=== PATIENT | female | born 1995 | race Two or more races ===

== ENCOUNTER 2017-03-26 07:47 | Inpatient (IN) | payer SELFPAY ==
[~2017-03-26] VITALS: Ht 154.9 cm; Wt 98.0 kg
[2017-03-26] MEDS ORDERED: IV RINGERS,LACTATED 1000ML 1,000 ML IV SCH (08:39)
[2017-03-26] MEDS ORDERED: IBUPROFEN 600 MG TABLET. PO PRN (08:45)
[2017-03-26] MEDS ORDERED: OXYTOCIN 30 UNIT/500 ML PREMIX 500 ML IV PRN ×2 (08:45→09:45)
[2017-03-26] MEDS ORDERED: LIDOCAINE 1% PF 30 ML VIAL. INJ PRN (08:45)
[2017-03-26] MEDS ORDERED: 0.9 % SODIUM CHLORIDE 10 ML DISP.SYRIN. IV PRN ×2 (08:45→09:45)
[2017-03-26] MEDS ORDERED: fentaNYL PF VIAL 100 MCG/2 ML VIAL IV PRN ×2 (08:45)
[2017-03-26] MEDS ORDERED: TERBUTALINE 1 MG/ML VIAL. SQ PRN (08:45)
[2017-03-26] MEDS ORDERED: BUTORPHANOL 2 MG/ML VIAL. IV PRN ×2 (08:45)
[2017-03-26 09:08] LABS: BASO # 0.1 x10^3/uL (0.0-0.2); BASO % 1 % (0-3); EOS % 2 % (0-3); HEMATOCRIT 36.1 % (36.0-47.0); HEMOGLOBIN 12.1 g/dL (12.0-15.5); LYMPH # 2.8 x10^3/uL (1.0-4.8); LYMPH % 24 % (24-48); MEAN CORPUSCULAR HEMOGLOBIN 25 pg (25-35); MEAN CORPUSCULAR HGB CONC 33 g/dL (31-37); MEAN CORPUSCULAR VOLUME 76 fL (79-100); MONO % 6 % (0-9); NEUT % 68 % (31-73); PLATELET COUNT 163 x10^3/uL (140-400); RED BLOOD COUNT 4.77 x10^6/uL (3.50-5.40); RED CELL DISTRIBUTION WIDTH 13.8 % (11.5-14.5); WHITE BLOOD COUNT 11.3 x10^3/uL (4.0-11.0)
--- NOTE | 2017-03-26 09:34 | PDOC1 ---
OB - History Hx of Present Care: None Medical Complications: None Past Family/Social History * Past Medical, Surgical, Family and Obstetric Histories reviewed from chart. Blood Type: Unknown Rubella: Unknown RPR/VDRL: Unknown GBS Status: Unknown HBsAG: Unknown OB - Chief Complaint & HPI Date of Admission: Date of Admission: Mar 26, 2017 at 07:47 Chief Complaint/History : 3 Para: 2 Reason for admission: active labor Admission Nurse Assessment Rev: Yes Problems: OB - Admission Exam Physical Exam HEENT: Normal, Nasal Mucosa Normal, Oropharynx Normal, Moist Membranes, Fontanelles Normal Heart: Regular Rate Lungs: Clear, Equal Abdomen: Gravid Extremities: Normal Pulses, No tenderness or swelling Reflexes: Normal Cervical Dilatation: 9cm Effacement: 100% Station: 0 Membranes: Intact Amniotic Fluid: Thin Meconium Heart Rate: Normal Accelerations: Accelerations Present Short Term Variability: Present Contractions on Admission: < 5 Minutes Apart Intensity: Firm Assessment/Plan Assessment/Plan Active labor No Care ACSVD Problems: SARAH LEHMAN MD Mar 26, 2017 09:34
--- NOTE | 2017-03-26 09:36 | PDOC ---
VAGINAL DELIVERY DATE DATE: 03/26/17 TIME: 09:34 : 3 VACCUM ASSISTED: No PLACENTA: Spontaneous SEX: Female WEIGHT 9/2 Nuchal Cord: No Amniotic Fluid: Thin Meconium PAIN: Natural EPISIOTOMY: No EXTENSION: No EBL 300cc COMPLICATIONS None CONDITION Stable Signs of Intrauterine Infectio: None Shoulder Dystocia: Yes, Initial traction DIAGNOSIS CSVD Problems: SARAH LEHMAN MD Mar 26, 2017 09:36
[2017-03-26] MEDS ORDERED: diphenhydrAMINE HCL 25 MG CAPSULE PO PRN (09:45)
[2017-03-26] MEDS ORDERED: ZOLPIDEM 5 MG TABLET. PO PRN (09:45)
[2017-03-26] MEDS ORDERED: ACETAMINOPHEN 325 MG TABLET. PO PRN (09:45)
[2017-03-26] MEDS ORDERED: MAG HYDROX/ALUMINUM HYD/SIMETH 30 ML ORAL.SUSP PO PRN (09:45)
[2017-03-26] MEDS ORDERED: BENZOCAINE 20% TOPICAL AEROSOL SPRAY 57GM CAN. TP PRN (09:45)
[2017-03-26] MEDS ORDERED: MAGNESIUM HYDROXIDE 2,400 MG/30 ML ORAL.SUSP. PO PRN (09:45)
[2017-03-26] MEDS ORDERED: SIMETHICONE 80 MG TAB.CHEW PO PRN (09:45)
[2017-03-26] MEDS ORDERED: HYDROCORTISONE 1% TOPICAL OINTMENT 30GM TUBE. TP PRN (09:45)
[2017-03-26] MEDS ORDERED: PHENYLEPH/MINERAL OIL/PETROLAT RECTAL OINTMENT 28GM TUBE. RC PRN (09:45)
[2017-03-26] MEDS ORDERED: HYDROcodone/APAP 5/325MG 1 TAB TABLET PO PRN (09:45)
[2017-03-26 09:47] VITALS: BP 130/76
[2017-03-26 11:54] VITALS: BP 99/61
[2017-03-26 16:39] VITALS: BP 112/74
[2017-03-26] MEDS ORDERED: FERROUS SULFATE 325 MG TABLET. PO SCH (17:00)
[2017-03-26 20:00] VITALS: BP 115/72
[2017-03-26] MEDS: IBUPROFEN 800 MG TABLET. PO SCH (21:24)
[2017-03-26 23:55] VITALS: BP 123/75
[2017-03-27 05:30] VITALS: BP 98/60
[2017-03-27 06:10] LABS: RPR REFLEX Non Reactive (Non Reactive)
--- NOTE | 2017-03-27 12:49 | PDOC ---
OB Progress Note Date of Service 03/27/17 Time of Evaluation 1245 Notes Pt. feeling well. No complaints. Lab Laboratory Tests Test 03/26/17 08:45 03/26/17 09:40 03/27/17 06:10 White Blood Count 11.3 x10^3/uL (4.0-11.0) Red Blood Count 4.77 x10^6/uL (3.50-5.40) Hemoglobin 12.1 g/dL (12.0-15.5) Hematocrit 36.1 % (36.0-47.0) 34.4 % (36.0-47.0) Mean Corpuscular Volume 76 fL (79-100) Mean Corpuscular Hemoglobin 25 pg (25-35) Mean Corpuscular Hemoglobin Concent 33 g/dL (31-37) Red Cell Distribution Width 13.8 % (11.5-14.5) Platelet Count 163 x10^3/uL (140-400) Neutrophils (%) (Auto) 68 % (31-73) Lymphocytes (%) (Auto) 24 % (24-48) Monocytes (%) (Auto) 6 % (0-9) Eosinophils (%) (Auto) 2 % (0-3) Basophils (%) (Auto) 1 % (0-3) Neutrophils # (Auto) 7.7 x10^3uL (1.8-7.7) Lymphocytes # (Auto) 2.8 x10^3/uL (1.0-4.8) Monocytes # (Auto) 0.6 x10^3/uL (0.0-1.1) Eosinophils # (Auto) 0.2 x10^3/uL (0.0-0.7) Basophils # (Auto) 0.1 x10^3/uL (0.0-0.2) RPR Titer Additional Testing Non reactive (Non Reactive) Laboratory Tests Test 03/27/17 06:10 Hematocrit 34.4 % (36.0-47.0) Medications Current Medications Sodium Chloride (Normal Saline Flush) 3 ml QSHIFT PRN IV AFTER MEDS AND BLOOD DRAWS Last administered on 03/26/17t 11:17; Start 03/26/17 at 08:45; Stop 03/26/17 at 12:03; Status DC Ringer's Solution 1,000 ml @ 125 mls/hr Q8H IV Last administered on 03/26/17 11:20; Start 03/26/17 at 08:39; Stop 03/26/17 at 12:03; Status DC Butorphanol Tartrate (Stadol) 1 mg PRN Q1HR PRN IV mild to moderate labor pain ; Start 03/26/17 at 08:45; Stop 03/26/17 at 12:03; Status DC Butorphanol Tartrate (Stadol) 2 mg PRN Q1HR PRN IV Severe labor pain; Start 03/26/17 at 08:45; Stop 03/26/17 at 12:03; Status DC Fentanyl Citrate (Fentanyl 2ml Vial) 50 mcg PRN Q30MIN PRN IV Mild to moderate pain; Start 03/26/17 at 08:45; Stop 03/26/17 at 12:03; Status DC Fentanyl Citrate (Fentanyl 2ml Vial) 100 mcg PRN Q30MIN PRN IV Severe pain; Start 03/26/17 at 08:45; Stop 03/26/17 at 12:03; Status DC Terbutaline Sulfate (Brethine) 0.25 mg 1X PRN PRN SQ SEE COMMENTS; Start at 08:45; Stop 03/26/17 at 12:03; Status DC Lidocaine HCl 30 ml 1X PRN PRN INJ SEE COMMENTS; Start 03/26/17 at 08:45; Stop 03/26/17 at 12:03; Status DC Oxytocin/Sodium Chloride 500 ml @ 0 mls/hr CONT PRN PRN IV Post delivery bleeding Last administered on 03/26/17 11:20; Start 03/26/17 at 08:45; Stop at 12:03; Status DC Ibuprofen (Motrin) 600 mg PRN Q6HRS PRN PO PAIN Last administered on 03/26/17 11:17; Start 03/26/17 at 08:45 Sodium Chloride (Normal Saline Flush) 10 ml QSHIFT PRN IV AFTER MEDS AND BLOOD DRAWS; Start 03/26/17 at 09:45; Stop 03/26/17 at 12:03; Status DC Oxytocin/Sodium Chloride 500 ml @ 62.5 mls/hr CONT PRN IV SEE I/O RECORD; Start 03/26/17 at 09:45; Stop 03/26/17 at 12:03; Status DC Acetaminophen (Tylenol) 650 mg PRN Q6HRS PRN PO MILD PAIN / TEMP; Start at 09:45 Ibuprofen (Motrin) 800 mg Q8HRS PO Last administered on 03/26/17t 21:24; Start 03/26/17 at 14:00 Magnesium Hydroxide (Milk Of Magnesia) 2,400 mg PRN DAILY PRN PO CONSTIPATION; Start 03/26/17 at 09:45 Al Hydroxide/Mg Hydroxide (Mylanta Plus Xs) 30 ml PRN Q4HRS PRN PO HEARTBURN / GAS; Start 03/26/17 at 09:45 Simethicone (Gas-X) 80 mg PRN AFTMEALHC PRN PO GAS / BLOATING; Start 03/26/17 at 09:45 Diphenhydramine HCl (Benadryl) 25 mg PRN Q6HRS PRN PO ITCHING; Start 03/26/17 at 09:45 Benzocaine (Americaine) 1 spray PRN QID PRN TP TOPICAL PAIN; Start 03/26/17 at 09:45 Phenyleph/Shark Oil/Min Oil/Petrol (Preparation H) 1 kleber PRN QID PRN RC RECTAL PAIN; Start 03/26/17 at 09:45 Hydrocortisone (Cortaid) 1 kleber PRN QID PRN TP RECTAL PAIN; Start 03/26/17 at 09: 45 Ferrous Sulfate (Feosol) 325 mg BIDWMEALS PO ; Start 03/26/17 at 17:00; Stop 03/27 at 07:33; Status DC Zolpidem Tartrate (Ambien) 5 mg PRN QHS PRN PO INSOMNIA, MAY REPEAT X1; Start 03/26/17 at 09:45 Info (Do NOT chart on this placeholder) 1 ea 1X PRN PRN MC SEE COMMENTS; Start 03/26/17 at 09:45; Stop 03/26/17 at 12:03; Status DC Acetaminophen/ Hydrocodone Bitart (Lortab 5/325) 1 tab PRN Q4HRS PRN PO PAIN; Start 03/26/17 at 09:45 Active Scripts Active Reported No Known Medications Prior To Admisstion (Info) Each 1 Each MC Exam Abd: soft, non tender, fundus firm Assessment PPD#1 s/p Plan of Care: Continue current Tx, Mgmt EWELINA SOARES Jr, MD Mar 27, 2017 12:49
[2017-03-27 13:00] VITALS: BP 96/59
[2017-03-27] MEDS: IBUPROFEN 800 MG TABLET. PO SCH (18:15)
[2017-03-27 18:26] VITALS: BP 119/49
[2017-03-28 06:24] VITALS: BP 122/77
[2017-03-28 09:00] VITALS: BP 106/72
--- NOTE | 2017-03-28 16:38 | PDOC3 ---
OB DISCHARGE SUMMARY DATE OF ADMISSION: 03/26/17 DATE OF DISCHARGE: 03/28/17 REASON FOR ADMISSION: Onset of labor PROCEDURES: Ultrasound INTRAPARTUM PROCEDURES: Spontanous Vag Deliv PROCEDURES: None OPERATIONS: None DISCHARGE DIAGNOSIS: Term Delivered DISCHARGE INFORMATION: Activity, Diet HOSPITAL COURSE Unremarkable CONDITION AT DISCHARGE Stable SARAH LEHMAN MD Mar 28, 2017 16:38
[2017-03-28] MEDS ORDERED: HYDR-971 PO (16:39)
[2017-03-28] MEDS ORDERED: NAPR500T3 PO (16:39)
[2017-03-28 17:17] VITALS: BP 104/70
== END 2017-03-28 17:38 | disposition home or self-care (01) | DRG 775 ==
LOC: OBSVTOIN 07:47 → 3 SO LND 07:47 → 3 NORTH 11:41
PROVIDERS: ADMIT Specialist; ATTEND Specialist
PROC: 10E0XZZ Delivery of Products of Conception, External Approach (ICD-10-PCS; principal; 2017-03-26)
DX: O77.0 Labor and delivery complicated by meconium in amniotic fluid (principal); O66.0 Obstructed labor due to shoulder dystocia; Z37.0 Single live birth; Z3A.40 40 weeks gestation of pregnancy
CPT/HCPCS: 36415; 85014; 85025; 86593; 86762; 86850; 86900; 86901; 87340; 87341; 87653; G0378; J2590; J7120; 99285-25